=== PATIENT | male | born 2005 | race Two or more races ===

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

== ENCOUNTER → 2025-04-06 11:23 | Outpatient (REF) | payer OTHER, SELFPAY | LOC: RAD 11:23 | PROVIDERS: FAMILY PHYSICIAN Family Medicine | DX: S43.6 Sprain of sternoclavicular joint (principal) | CPT/HCPCS: 71120 ==